=== PATIENT | female | born 1970 | race Caucasian/White ===

== ENCOUNTER 2022-06-22 19:35 | Inpatient (IN) | payer MEDICARE, OTHER ==
[~2022-06-22] VITALS: Ht 167.6 cm; Wt 88.9 kg
[2022-06-23 07:01] LABS: HEMOGLOBIN 8.5 gm/dl (12.3-15.3); RED BLOOD COUNT 3.17 M/UL (4.00-5.10)
[2022-06-23 07:50] LABS: BUN/CREATININE RATIO 21 (0-10)
[2022-06-23] MEDS ORDERED: METFORMIN HCL1000 MG PO (10:25)
[2022-06-23] MEDS ORDERED: LISINOPRIL5 MG PO (10:25)
[2022-06-24 05:40] LABS: RED BLOOD COUNT 2.99 M/UL (4.00-5.10); WHITE BLOOD COUNT 6.7 K/UL (4.5-11.0)
[2022-06-24 08:50] LABS: BUN/CREATININE RATIO 14 (0-10)
[2022-06-25 05:54] LABS: RED BLOOD COUNT 2.97 M/UL (4.00-5.10); WHITE BLOOD COUNT 6.7 K/UL (4.5-11.0)
[2022-06-25 06:23] LABS: BUN/CREATININE RATIO 10 (0-10)
[2022-06-25] MEDS ORDERED: LOPRESSOR 25 MG25 MG PO (14:03)
[2022-06-25] MEDS ORDERED: VANCOMYCIN750 MG/151 IV (14:03)
[2022-06-25] MEDS ORDERED: MEROPENEM1 GM IV (14:03)
[2022-06-25] MEDS ORDERED: COLACE100 MG PO (14:42)
[2022-06-25] MEDS ORDERED: MIRALAX17 GM PO (14:42)
[2022-06-25] MEDS ORDERED: PERCOCET 10-321 EACH PO (14:42)
[2022-06-25] MEDS ORDERED: FERROUS SULFAT325 MG PO (14:45)
[2022-06-25] MEDS ORDERED: PROTONIX 40 MG40 M1 PO (14:45)
== END 2022-06-25 21:35 | DRG 603 ==
LOC: MED SURG 4 19:35 → M/S 23:16
PROVIDERS: Surgery; ADMIT Internal Medicine
PROC: 0Y910ZZ Drainage of Left Buttock, Open Approach (ICD-10-PCS; principal; 2022-06-23 11:30)
DX: L02.31 Cutaneous abscess of buttock (principal); E11.9 Type 2 diabetes mellitus without complications; I10 Essential (primary) hypertension; E78.5 Hyperlipidemia, unspecified; K21.9 Gastro-esophageal reflux disease without esophagitis; G89.29 Other chronic pain; D64.9 Anemia, unspecified; K59.00 Constipation, unspecified; M16.9 Osteoarthritis of hip, unspecified; Z89.511 Acquired absence of right leg below knee; Z89.512 Acquired absence of left leg below knee; Z79.899 Other long term (current) drug therapy; Z79.84 Long term (current) use of oral hypoglycemic drugs; Z87.891 Personal history of nicotine dependence
CPT/HCPCS: 36415; 80053; 80202; 82550; 82553; 82962; 83036; 83540; 83550; 83735; 84100; 84439; 84443; 85025; 86140; J1170; J1650; J2185; J2270; J2543; J3370; J7070